=== PATIENT | female | born 1965 | race Caucasian/White ===

== ENCOUNTER → 2017-02-04 | Outpatient (CLI) | payer BC ==
--- NOTE | 2017-02-04 16:28 | RAD ---
Indication pain. AP oblique and lateral views of the left knee were obtained. No acute bony finding is seen. Significant degenerative changes are not apparent on plain films. Surgical clips are noted. IMPRESSION: No acute or significant bony finding
== END | disposition home or self-care (01) ==
LOC: RAD 10:44
PROVIDERS: ATTEND Family Medicine
DX: M25.562 Pain in left knee (principal)
CPT/HCPCS: 73562